=== PATIENT | male | born 1990 | race Caucasian/White ===

== ENCOUNTER 2017-07-13 14:35 | Emergency (ER) | payer OTHER ==
[~2017-07-13] VITALS: Ht 182.9 cm; Wt 115.4 kg
[2017-07-13 14:39] VITALS: TEMP 36.4; Ht 182.9 cm; Wt 115.4 kg
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
[2017-07-13 16:13] VITALS: BP 131/84; PULSE 59; O2SAT 96
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
== END 2017-07-13 16:14 | disposition home or self-care (01) ==
LOC: C.EDD 14:38
DX: M79.1 Myalgia (principal); S60.221A Contusion of right hand, initial encounter; S80.11XA Contusion of right lower leg, initial encounter; V49.50XA Passenger injured in collision with unspecified motor vehicles in traffic accident, initial encounter